=== PATIENT | male | born 1945 | race Caucasian/White ===

== ENCOUNTER 2017-11-20 12:20 | Outpatient (CLI) | payer MEDICARE ==
--- NOTE | 2017-11-20 13:30 | RAD ---
SKULL 3 VIEWS: HISTORY: Patient having MRI. Patient gives a history of possible metal in the eyes. FINDINGS/IMPRESSION: No radiopaque foreign body is seen. POS: [facility]
--- NOTE | 2017-11-20 16:20 | MRI ---
MRI THORACIC SPINE 11/20/17 HISTORY: Upper back pain for several months. Multiplanar and multisequence noncontrast enhanced MRI images of the thoracic spine obtained. 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 The spinal cord is unremarkable with no evidence of masses or lesions. There is a broad based disc bulge at the T6-7 level with minimal but not significant compression of t he thecal sac. The neural foramen are patent. T7-8: There is end plate degenerative changes seen in the inferior end plate of T7 and superior end plate of T8. There is disc space height loss seen. There is a broad based disc osteophyte complex sav trally compressing the thecal sac resulting in some mild to moderate central and lateral recess steno sis. The neural foramen are patent. No evidence of cord compression or edema seen. 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 POS: [facility]
== END 2017-11-20 12:21 | disposition home or self-care (01) ==
LOC: SCSMRI 12:20
PROVIDERS: ATTEND Family Medicine
DX: M51.14 Intervertebral disc disorders with radiculopathy, thoracic region (principal)
CPT/HCPCS: 70250; 72146

== ENCOUNTER 2022-04-23 10:39 | Outpatient (CLI) | payer MEDICARE, OTHER ==
[2022-04-23 13:03] LABS: #Basophils 0.1 10x3/uL (0.0-0.2); #Eosinphils 0.2 10x3/uL (0.0-0.5); #Monocytes 0.4 10x3/uL (0.0-1.1); #Neutrophils 3.1 10x3/uL (1.5-8.4); %Basophils 1.4 % (0.0-2.0); %Eosinophils 3.6 % (0.0-6.0); %Lymphocytes 31.2 % (18.0-47.0); %Monocytes 7.7 % (0.0-10.0); %Neutrophils 55.7 % (40.0-75.0); Hemoglobin 12.6 g/dL (13.5-17.5); Mean Corpuscular HGB CONC 31.8 g/dL (32.0-36.0); Mean Corpuscular Hemoglobin 27.5 pg (27.0-33.0); Mean Corpuscular Volume 86.3 fl (81.2-95.1); Mean Platelet Volume 10.6 fl (7.4-10.4); Platelet Count 209 10x3/uL (150-450); RBC Distribution Width 13.3 % (11.5-14.5); Red Blood Cell (RBC) Count 4.59 10x6/uL (4.32-5.72); White Blood Cell (WBC) Count 5.6 10x3/uL (3.5-10.5)
[2022-04-23 13:34] LABS: Anion Gap 15 mmol/L (10-20); BUN (Urea Nitrogen) 19 mg/dL (8.4-25.7); Calc. Creatinine Clearance 0 mL/min (70-130); Calcium 9.7 mg/dL (7.8-10.44); Carbon Dioxide 23 mmol/L (23-31); Chloride 108 mmol/L (98-107); Estimated GFR 70; Glucose 92 mg/dL (83-110); Potassium 4.2 mmol/L (3.5-5.1); Sodium 142 mmol/L (136-145)
[2022-04-23 14:13] LABS: Hemoglobin A1c 5.9 % (4.0-6.0)
== END 2022-04-23 10:40 | disposition home or self-care (01) ==
LOC: LABBT 10:39
PROVIDERS: ATTEND Surgery
DX: Z01.818 Encounter for other preprocedural examination (principal)
CPT/HCPCS: 80048; 83036; 85025; 93005; 93010

== ENCOUNTER 2022-04-23 10:45 | Inpatient (IN) | payer MEDICARE ==
[2022-04-26] MEDS ORDERED: Bupivacaine/Epinephrine 0.25% 30 ML VIAL ONE (06:38)
[2022-04-26] MEDS ORDERED: fentaNYL PF 100 MCG/2 ML SYRINGE ONE (06:43)
[2022-04-26 07:10] LABS: SARS-CoV-2 NAA Rapid Test Not Detected (NotDetected)
[2022-04-26] MEDS ORDERED: Midazolam HCl 2 mg/2 ml Vial ONE (07:19)
[2022-04-26] MEDS ORDERED: Fentanyl 100 MCG/2 ML VIAL ONE ×3 (07:19→10:46)
[2022-04-26] MEDS ORDERED: cefOXitin 2 GM VIAL ONE (07:20)
[2022-04-26] MEDS ORDERED: Bupivacaine PF 0.5% 30 ML VIAL ONE (07:20)
[2022-04-26] MEDS ORDERED: Sodium Chloride 0.9% 100 ML ONE (07:20)
[2022-04-26] MEDS ORDERED: PROPOFOL 200 MG/20 ML VIAL ONE (07:43)
[2022-04-26] MEDS ORDERED: Lidocaine 1% PF 5 ML VIAL ONE (07:43)
[2022-04-26] MEDS ORDERED: Dexamethasone 20 MG/5 ML VIAL ONE (07:43)
[2022-04-26] MEDS ORDERED: ePHEDrine 50 MG/ML VIAL ONE (07:43)
[2022-04-26] MEDS ORDERED: NEOSTIGMINE 3 MG/3 ML SYR 3 MG/3 ML SYRINGE ONE (07:43)
[2022-04-26] MEDS ORDERED: Rocuronium Bromide 10 MG/ML (10ML VIAL) ONE (07:43)
[2022-04-26] MEDS ORDERED: Glycopyrrolate 0.2 MG/ML 5 ML SYRINGE ONE ×2 (07:43)
[2022-04-26] MEDS ORDERED: Bupivacaine HCl 0.5%/Epinephrine 1:200,000/PF 30 ml Vial ONE (07:43)
[2022-04-26] MEDS ORDERED: Ondansetron PF 4 MG/2 ML Vial ONE (07:43)
[2022-04-26] MEDS ORDERED: Ipratropium/Albuterol 3 ML NEB NEB PRN (10:00)
[2022-04-26] MEDS ORDERED: Ondansetron PF 4 MG/2 ML Vial IVP PRN (10:00)
[2022-04-26] MEDS ORDERED: hydrALAZINE 20 MG/ML VIAL SLOW IVP PRN (10:00)
[2022-04-26] MEDS ORDERED: Promethazine HCl 25 MG/ML VIAL IM PRN ×2 (10:00→10:08)
[2022-04-26] MEDS ORDERED: Dextrose 5% in Water 1,000 ML IV PRN (10:00)
[2022-04-26] MEDS ORDERED: Dextrose 50% Abboject 50 ML SYRINGE SLOW IVP PRN (10:00)
[2022-04-26] MEDS ORDERED: diphenhydrAMINE 25 MG CAP PO PRN (10:08)
[2022-04-26] MEDS ORDERED: HYDROmorphone 2 MG/ML VIAL SLOW IVP PRN (10:08)
[2022-04-26] MEDS ORDERED: Ondansetron HCl/PF 4 MG/2 ML Vial IVP PRN (10:08)
[2022-04-26] MEDS ORDERED: FENTANYL 500 MCG/10 ML VIAL 2,000 MCG in Sodium Chloride 0.9% 60 ML IV PRN (10:08)
[2022-04-26] MEDS ORDERED: diphenhydrAMINE 50 MG/ML VIAL IVP PRN (10:08)
[2022-04-26] MEDS ORDERED: Zolpidem Tartrate 5 MG TAB PO PRN (10:08)
[2022-04-26] MEDS ORDERED: Naloxone HCl 0.4 mg/ml Vial IV PRN (10:08)
[2022-04-26] MEDS ORDERED: diphenhydrAMINE 50 MG/ML VIAL IM PRN (10:08)
[2022-04-26] MEDS ORDERED: PCA Communication Order-Pharmacy FS SCH (10:15)
[2022-04-26] MEDS ORDERED: HYDROmorphone 0.5 MG/0.5 ML SYRINGE ONE ×2 (11:20→11:48)
[2022-04-26] MEDS: D5 1/2 NS w/20 mEq KCL 1,000 ML IV SCH ×2 (13:21→23:16)
[2022-04-26 17:23] VITALS: BMI 28.9
[2022-04-26] MEDS: Famotidine/PF 20 mg/2ml Vial SLOW IVP SCH (20:55)
[2022-04-26] MEDS: Famotidine 20 MG TAB PO SCH (20:56)
[2022-04-27 05:55] LABS: #Lymphocytes 0.9 thou/uL (1.20-3.40); #Monocytes 0.8 thou/uL (0.11-0.59); %Basophils 0.1 % (0.0-1.0); %Eosinophils 0.1 % (0.0-10.0); %Lymphocytes 9.8 % (21.0-51.0); %Monocytes 9.3 % (0.0-10.0); %Neutrophils 80.8 % (42.0-75.0); Hemoglobin 11.8 g/dL (14.0-18.0); Mean Corpuscular HGB CONC 32.6 g/dL (32.0-36.0); Mean Corpuscular Hemoglobin 28.7 pg (27.0-31.0); Mean Corpuscular Volume 88.1 fl (78.0-98.0); Mean Platelet Volume 7.2 fL (7.4-10.4); Platelet Count 211 10x3/uL (130-400); RBC Distribution Width 12.8 % (11.5-14.5); Red Blood Cell (RBC) Count 4.13 mill/uL (4.70-6.10); White Blood Cell (WBC) Count 8.7 10x3/uL (4.8-10.8)
[2022-04-27 06:18] LABS: Anion Gap 11 mmol/L (10-20); BUN (Urea Nitrogen) 12 mg/dL (8.4-25.7); Calc. Creatinine Clearance 67 mL/min (70-130); Calcium 9.2 mg/dL (7.8-10.44); Carbon Dioxide 21 mmol/L (23-31); Chloride 103 mmol/L (98-107); Estimated GFR 73; Glucose 142 mg/dL (83-110); Potassium 4.3 mmol/L (3.5-5.1); Sodium 131 mmol/L (136-145)
[2022-04-27] MEDS ORDERED: traMADol HCl 50 MG TAB PO PRN ×2 (10:40→10:41)
[2022-04-27] MEDS: Famotidine 20 MG TAB PO SCH ×2 (11:08→19:34)
[2022-04-27] MEDS: Lisinopril/Hydrochlorothiazide 20/25 mg Tablet PO SCH (11:09)
[2022-04-27] MEDS: Famotidine/PF 20 mg/2ml Vial SLOW IVP SCH ×2 (11:09→20:33)
[2022-04-27] MEDS: HYDROcodone/Acetaminophen 10/325 mg Tablet PO PRN ×4 (11:18→22:49)
[2022-04-27] MEDS: D5 1/2 NS w/20 mEq KCL 1,000 ML IV SCH ×2 (11:18→22:51)
[2022-04-27] MEDS: Fentanyl 100 MCG/2 ML VIAL SLOW IVP PRN (12:57)
[2022-04-28] MEDS: Fentanyl 100 MCG/2 ML VIAL SLOW IVP PRN ×2 (04:17→07:24)
[2022-04-28] MEDS: Ondansetron PF 4 MG/2 ML Vial IVP PRN ×2 (04:25→10:35)
[2022-04-28] MEDS: Lisinopril/Hydrochlorothiazide 20/25 mg Tablet PO SCH (07:23)
[2022-04-28] MEDS: D5 1/2 NS w/20 mEq KCL 1,000 ML IV SCH (07:23)
[2022-04-28] MEDS: Famotidine/PF 20 mg/2ml Vial SLOW IVP SCH ×2 (07:24→19:41)
[2022-04-28] MEDS: Famotidine 20 MG TAB PO SCH ×2 (07:42→19:40)
[2022-04-28] MEDS ORDERED: Lactated Ringer's 500 ML IV SCH (09:30)
[2022-04-28] MEDS: Lactated Ringer's 1,000 ML IV SCH ×3 (09:41→23:26)
[2022-04-28 10:16] LABS: #Lymphocytes 0.7 thou/uL (1.20-3.40); #Monocytes 0.6 thou/uL (0.11-0.59); #Neutrophils 5.7 thou/uL (1.40-6.50); %Basophils 0.1 % (0.0-1.0); %Eosinophils 0.1 % (0.0-10.0); %Lymphocytes 9.3 % (21.0-51.0); %Monocytes 9.1 % (0.0-10.0); %Neutrophils 81.4 % (42.0-75.0); Hemoglobin 12.5 g/dL (14.0-18.0); Mean Corpuscular HGB CONC 32.6 g/dL (32.0-36.0); Mean Corpuscular Hemoglobin 28.5 pg (27.0-31.0); Mean Corpuscular Volume 87.2 fl (78.0-98.0); Mean Platelet Volume 7.4 fL (7.4-10.4); Platelet Count 231 10x3/uL (130-400)
[2022-04-28 10:36] LABS: Anion Gap 13 mmol/L (10-20); BUN (Urea Nitrogen) 13 mg/dL (8.4-25.7); Calc. Creatinine Clearance 64 mL/min (70-130); Carbon Dioxide 22 mmol/L (23-31); Chloride 100 mmol/L (98-107); Estimated GFR 69; Glucose 142 mg/dL (83-110); Phosphorus 2.3 mg/dL (2.3-4.7); Potassium 4.3 mmol/L (3.5-5.1); Sodium 131 mmol/L (136-145)
[2022-04-28] MEDS: HYDROcodone/Acetaminophen 10/325 mg Tablet PO PRN ×2 (15:41→19:40)
[2022-04-28] MEDS: Promethazine HCl 25 MG/ML VIAL IM PRN (19:40)
[2022-04-29] MEDS: HYDROcodone/Acetaminophen 10/325 mg Tablet PO PRN ×3 (02:45→19:46)
[2022-04-29] MEDS: Promethazine HCl 25 MG/ML VIAL IM PRN (02:51)
[2022-04-29] MEDS: Lisinopril/Hydrochlorothiazide 20/25 mg Tablet PO SCH (08:50)
[2022-04-29] MEDS: Famotidine/PF 20 mg/2ml Vial SLOW IVP SCH ×2 (08:50→20:42)
[2022-04-29] MEDS: Lactated Ringer's 1,000 ML IV SCH (08:50)
[2022-04-29] MEDS: Famotidine 20 MG TAB PO SCH ×2 (08:50→19:47)
[2022-04-29] MEDS: 1/2 NS w/KCL 20 mEq 1,000 ML IV SCH ×2 (12:13→20:03)
[2022-04-29] MEDS: Ondansetron PF 4 MG/2 ML Vial IVP PRN (19:47)
[2022-04-30] MEDS: 1/2 NS w/KCL 20 mEq 1,000 ML IV SCH ×3 (05:16→15:12)
[2022-04-30] MEDS: Lisinopril/Hydrochlorothiazide 20/25 mg Tablet PO SCH (08:43)
[2022-04-30] MEDS: Famotidine/PF 20 mg/2ml Vial SLOW IVP SCH ×2 (08:43→20:33)
[2022-04-30] MEDS: Famotidine 20 MG TAB PO SCH ×2 (08:43→20:33)
[2022-04-30] MEDS: HYDROcodone/Acetaminophen 10/325 mg Tablet PO PRN (14:00)
[2022-05-01] MEDS: 1/2 NS w/KCL 20 mEq 1,000 ML IV SCH ×2 (02:00→10:03)
[2022-05-01] MEDS: Ondansetron PF 4 MG/2 ML Vial IVP PRN (03:09)
[2022-05-01] MEDS: HYDROcodone/Acetaminophen 10/325 mg Tablet PO PRN ×2 (07:48→20:42)
[2022-05-01] MEDS: Lisinopril/Hydrochlorothiazide 20/25 mg Tablet PO SCH (09:50)
[2022-05-01] MEDS: Famotidine 20 MG TAB PO SCH ×2 (09:50→20:43)
[2022-05-01] MEDS: Famotidine/PF 20 mg/2ml Vial SLOW IVP SCH ×2 (09:50→22:57)
[2022-05-01] MEDS: Promethazine HCl 25 MG/ML VIAL IM PRN (16:30)
[2022-05-02] MEDS: HYDROcodone/Acetaminophen 10/325 mg Tablet PO PRN ×2 (09:08→13:36)
[2022-05-02] MEDS: Famotidine 20 MG TAB PO SCH (09:09)
[2022-05-02] MEDS: Lisinopril/Hydrochlorothiazide 20/25 mg Tablet PO SCH (09:09)
[2022-05-02] MEDS: Famotidine/PF 20 mg/2ml Vial SLOW IVP SCH (09:16)
[2022-05-02 12:05] VITALS: BP 135/83; TEMP 98.1
== END 2022-05-02 13:50 | disposition home or self-care (01) | DRG 330 ==
LOC: SURG A 04-26 05:28
PROVIDERS: ADMIT Surgery; ATTEND Surgery
PROC: 0DTG0ZZ Resection of Left Large Intestine, Open Approach (ICD-10-PCS; principal; 2022-04-26)
PROC: 0DJD4ZZ Inspection of Lower Intestinal Tract, Percutaneous Endoscopic Approach (ICD-10-PCS; 2022-04-26)
DX: C18.7 Malignant neoplasm of sigmoid colon (principal); K56.7 Ileus, unspecified; Z20.822 Contact with and (suspected) exposure to COVID-19; Z79.899 Other long term (current) drug therapy; Z79.82 Long term (current) use of aspirin; Z90.49 Acquired absence of other specified parts of digestive tract; Z82.3 Family history of stroke
CPT/HCPCS: 36415; 36416; 80048; 83735; 84100; 85025; 88309; C1713; C1889; J0694; J1100; J1170; J1650; J2250; J2405; J2550; J2704; J3010; J3480; J3490; J7120; S0020; S0028; U0002

== ENCOUNTER 2022-12-20 08:00 | Outpatient (CLI) | payer MEDICARE | END 2022-12-20 08:01 | disposition home or self-care (01) | LOC: PET 08:00 | PROVIDERS: ATTEND Internal Medicine Hematology & Oncology | DX: C16.2 Malignant neoplasm of body of stomach (principal); R59.0 Localized enlarged lymph nodes | CPT/HCPCS: 78815; A9552 ==

== ENCOUNTER 2022-12-28 13:18 | Outpatient (CLI) | payer MEDICARE ==
[2022-12-28 14:23] LABS: #Basophils 0.1 10x3/uL (0.0-0.2); #Eosinphils 0.1 10x3/uL (0.0-0.5); #Monocytes 0.4 10x3/uL (0.0-1.1); #Neutrophils 5.3 10x3/uL (1.5-8.4); %Basophils 0.7 % (0.0-2.0); %Lymphocytes 15.5 % (18.0-47.0); %Monocytes 6.3 % (0.0-10.0); %Neutrophils 75.4 % (40.0-75.0); Hematocrit 35.1 % (38.8-50.0); Hemoglobin 10.1 g/dL (13.5-17.5); Mean Corpuscular HGB CONC 28.8 g/dL (32.0-36.0); Mean Corpuscular Hemoglobin 24.5 pg (27.0-33.0); Mean Platelet Volume 9.2 fl (7.4-10.4); Platelet Count 222 10x3/uL (150-450); RBC Distribution Width 24.2 % (11.5-14.5); Red Blood Cell (RBC) Count 4.13 10x6/uL (4.32-5.72)
[2022-12-28 14:32] LABS: Anion Gap 14 mmol/L (10-20); BUN (Urea Nitrogen) 15 mg/dL (8.4-25.7); Calc. Creatinine Clearance 0 mL/min (70-130); Calcium 9.6 mg/dL (7.8-10.44); Carbon Dioxide 24 mmol/L (23-31); Chloride 106 mmol/L (98-107); Estimated GFR 72; Glucose 129 mg/dL (83-110); Potassium 4.3 mmol/L (3.5-5.1); Sodium 140 mmol/L (136-145)
== END 2022-12-28 13:19 | disposition home or self-care (01) ==
LOC: LABBT 13:18
PROVIDERS: ATTEND Surgery
DX: Z01.812 Encounter for preprocedural laboratory examination (principal); C16.2 Malignant neoplasm of body of stomach
CPT/HCPCS: 80048; 85025

== ENCOUNTER 2022-12-31 09:55 | Day surgery (SDC) | payer MEDICARE ==
[2022-12-28 11:17] VITALS: BMI 26.6
[2022-12-31] MEDS ORDERED: EPINEPHrine 1 MG/ML VIAL ONE (11:25)
[2022-12-31] MEDS ORDERED: Bupivacaine 0.25% HCL 30 ML VIAL ONE (11:25)
[2022-12-31] MEDS ORDERED: fentaNYL PF 100 MCG/2 ML SYRINGE ONE (11:50)
[2022-12-31] MEDS ORDERED: Sodium Chloride 0.9% 100 ML ONE (12:01)
[2022-12-31] MEDS ORDERED: CEFAZOLIN 2 GM VIAL ONE (12:01)
[2022-12-31] MEDS ORDERED: Propofol 500 MG/50 ML VIAL ONE (12:02)
[2022-12-31] MEDS ORDERED: Lidocaine 2% PF 5 ML VIAL ONE (12:28)
== END 2022-12-31 13:55 | disposition home or self-care (01) ==
LOC: SDC 09:55
PROVIDERS: ATTEND Surgery
PROC: 0JH63WZ Insertion of Totally Implantable Vascular Access Device into Chest Subcutaneous Tissue and Fascia, Percutaneous Approach (ICD-10-PCS; principal; 2022-12-31)
DX: C16.2 Malignant neoplasm of body of stomach (principal); I10 Essential (primary) hypertension; Z86.010 Personal history of colon polyps
CPT/HCPCS: 71045; C1788; J0171; J1642; J2001; J2704; J3490; S0020

== ENCOUNTER 2023-01-01 10:03 | Inpatient (IN) | payer MEDICARE ==
[2023-01-01 10:59] LABS: #Eosinphils 0.1 thou/uL (0.0-0.7); #Monocytes 0.5 thou/uL (0.11-0.59); #Neutrophils 8.2 thou/uL (1.40-6.50); %Basophils 0.4 % (0.0-1.0); %Eosinophils 0.8 % (0.0-10.0); %Lymphocytes 8.1 % (21.0-51.0); %Monocytes 5.4 % (0.0-10.0); %Neutrophils 85.1 % (42.0-75.0); Hematocrit 29.8 % (42.0-52.0); Hemoglobin 8.5 g/dL (14.0-18.0); Mean Corpuscular HGB CONC 28.5 g/dL (32.0-36.0); Mean Corpuscular Hemoglobin 25.5 pg (27.0-31.0); Mean Corpuscular Volume 89.5 fl (78.0-98.0); Platelet Count 179 10x3/uL (130-400); Red Blood Cell (RBC) Count 3.33 mill/uL (4.70-6.10); White Blood Cell (WBC) Count 9.7 10x3/uL (4.8-10.8)
[2023-01-01 11:30] LABS: ALT (SGPT) 7 U/L (8-55); AST (SGOT) 10 U/L (5-34); Albumin 3.4 g/dL (3.4-4.8); Alkaline Phosphatase 57 U/L (40-110); Anion Gap 13 mmol/L (10-20); BUN (Urea Nitrogen) 17 mg/dL (8.4-25.7); Bilirubin, Total 0.2 mg/dL (0.2-1.2); Calc. Creatinine Clearance 0 mL/min (70-130); Calcium 8.8 mg/dL (7.8-10.44); Carbon Dioxide 21 mmol/L (23-31); Chloride 110 mmol/L (98-107); Estimated GFR 77; Globulin 1.8 g/dL (2.4-3.5); Glucose 120 mg/dL (83-110); Lipase Less than 4 U/L (8-78); Protein, Total 5.2 g/dL (5.8-8.1); Sodium 140 mmol/L (136-145)
[2023-01-01 11:32] LABS: Anisocytosis MODERATE=16-30 cells HPF (0-5); CellaVision Operator ID LAB.GE; Elliptocytes SLIGHT = 2-5 cells HPF (0-1); Hypochromia SLIGHT = 6-15 cells HPF (0-5); Ovalocytes SLIGHT = 2-5 cells HPF (0-1); Platelet Adequacy Comment Platelets Normal; Polychromasia SLIGHT = 2-3 cells HPF (0-2)
[2023-01-01 11:34] LABS: Troponin I Less than 0.010 ng/mL (< 0.028)
[2023-01-01] MEDS ORDERED: Iopamidol-370 76% 500 ML MDV (1 ML CHARGE) ONE (11:39)
[2023-01-01 12:38] LABS: Bacteria/HPF None Seen HPF (None Seen); Bilirubin Negative (Negative); Blood, Urine Negative (Negative); CAUTI Indications for Culture Alt mental st,lethar; Clarity Clear (Clear); Glucose, Urine (Dipstick) Normal (Negative); Ketone, Urine Negative (Negative); Leukocyte Negative Leu/uL (Negative); Nitrite Negative (Negative); Protein, Urine (Dipstick) Negative (Neg-Trace); RBC/HPF 0-3 HPF (0-3); Squamous Epithelial None Seen HPF (0-3); Urobilinogen Normal mg/dL (Less than 2); WBC/HPF 0-3 HPF (0-3); pH, Urine 6.5 (5.0-9.0)
[2023-01-01 12:41] LABS: Urine Culture Reflex No No
[2023-01-01 14:06] LABS: Lactic Acid 0.7 mmol/L (0.5-2.2)
[2023-01-01] MEDS ORDERED: Ondansetron PF 4 MG/2 ML Vial IVP PRN (14:22)
[2023-01-01] MEDS ORDERED: Ondansetron ODT 4 MG TAB PO PRN (14:22)
[2023-01-01] MEDS ORDERED: Acetaminophen 325 MG TAB PO PRN (14:22)
[2023-01-01] MEDS ORDERED: Electrolyte Replacement Protocol 1 EACH FS SCH (14:30)
[2023-01-01] MEDS: Sodium Chloride 0.9% 1,000 ML IV SCH (16:41)
[2023-01-01 17:03] LABS: Magnesium 1.8 mg/dL (1.6-2.6)
[2023-01-01] MEDS ORDERED: Rosuvastatin 10 MG TAB PO SCH (21:00)
[2023-01-01] MEDS ORDERED: Magnesium 2 GM/50 ML(in water) 2 GM in Premix 1 BAG IVPB SCH (21:15)
[2023-01-02] MEDS: Sodium Chloride 0.9% 1,000 ML IV SCH ×4 (01:11→16:41)
[2023-01-02 04:57] LABS: #Eosinphils 0.1 thou/uL (0.0-0.7); #Monocytes 0.4 thou/uL (0.11-0.59); #Neutrophils 3.3 thou/uL (1.40-6.50); %Basophils 0.8 % (0.0-1.0); %Eosinophils 2.4 % (0.0-10.0); %Lymphocytes 21.2 % (21.0-51.0); %Monocytes 7.9 % (0.0-10.0); %Neutrophils 67.3 % (42.0-75.0); Hematocrit 24.4 % (42.0-52.0); Hemoglobin 6.9 g/dL (14.0-18.0); Mean Corpuscular HGB CONC 28.3 g/dL (32.0-36.0); Mean Corpuscular Hemoglobin 24.6 pg (27.0-31.0); Mean Corpuscular Volume 87.1 fl (78.0-98.0); Mean Platelet Volume 10.3 fL (7.4-10.4); Platelet Count 154 10x3/uL (130-400); RBC Distribution Width 23.1 % (11.5-14.5); White Blood Cell (WBC) Count 4.9 10x3/uL (4.8-10.8)
[2023-01-02 08:56] LABS: Anion Gap 9 mmol/L (10-20); BUN (Urea Nitrogen) 20 mg/dL (8.4-25.7); Calc. Creatinine Clearance 76 mL/min (70-130); Calcium 8.8 mg/dL (7.8-10.44); Carbon Dioxide 23 mmol/L (23-31); Chloride 111 mmol/L (98-107); Estimated GFR 89; Glucose 104 mg/dL (83-110); Magnesium 2.1 mg/dL (1.6-2.6); Potassium 4.1 mmol/L (3.5-5.1); Sodium 139 mmol/L (136-145)
[2023-01-02 17:55] VITALS: BMI 261446.3
[2023-01-02 18:10] VITALS: BP 177/86
[2023-01-02 18:10] LABS: Hematocrit 28.5 % (42.0-52.0); Hemoglobin 8.6 g/dL (14.0-18.0); Platelet Count 169 10x3/uL (130-400)
[2023-01-02 18:11] VITALS: TEMP 98.2
== END 2023-01-02 19:17 | disposition home or self-care (01) | DRG 641 ==
LOC: ERS 10:03 → ERHOLD 13:09 → 2SW 15:26 → OBSVTOIN 01-02 16:11
PROVIDERS: ADMIT Internal Medicine; ATTEND Internal Medicine
PROC: 30233N1 Transfusion of Nonautologous Red Blood Cells into Peripheral Vein, Percutaneous Approach (ICD-10-PCS; principal; 2023-01-02)
DX: E86.9 Volume depletion, unspecified (principal); C18.9 Malignant neoplasm of colon, unspecified; C16.9 Malignant neoplasm of stomach, unspecified; I10 Essential (primary) hypertension; I25.10 Atherosclerotic heart disease of native coronary artery without angina pectoris; K31.89 Other diseases of stomach and duodenum; D63.8 Anemia in other chronic diseases classified elsewhere; Z95.5 Presence of coronary angioplasty implant and graft; Z90.49 Acquired absence of other specified parts of digestive tract; Z98.890 Other specified postprocedural states; Z79.899 Other long term (current) drug therapy; Z82.49 Family history of ischemic heart disease and other diseases of the circulatory system
CPT/HCPCS: 36415; 36430; 70450; 71045; 71275; 80048; 80053; 81001; 83605; 83690; 83735; 83880; 84484; 85025; 86850; 86900; 86901; 87040; 93005; 96360; 96365; C1788; G0378; J0171; J1642; J2001; J2704; J3475; J3490; J7050; P9016; Q9967; S0020

== ENCOUNTER 2023-04-11 12:30 | Outpatient (CLI) | payer MEDICARE | END 2023-04-11 12:31 | disposition home or self-care (01) | LOC: PET 12:30 | PROVIDERS: ATTEND Internal Medicine Hematology & Oncology | DX: C16.2 Malignant neoplasm of body of stomach (principal); C78.7 Secondary malignant neoplasm of liver and intrahepatic bile duct; C77.2 Secondary and unspecified malignant neoplasm of intra-abdominal lymph nodes; K31.89 Other diseases of stomach and duodenum | CPT/HCPCS: 78815; A9552 ==

== ENCOUNTER 2023-09-16 08:45 | Outpatient (CLI) | payer MEDICARE | END 2023-09-16 08:46 | disposition home or self-care (01) | LOC: PET 08:45 | PROVIDERS: ATTEND Radiology Radiation Oncology | DX: C16.8 Malignant neoplasm of overlapping sites of stomach (principal); R91.1 Solitary pulmonary nodule | CPT/HCPCS: 78815; A9552 ==

== ENCOUNTER 2023-10-18 11:47 | Emergency (ER) | payer MEDICARE ==
[2023-10-18] MEDS ORDERED: Pantoprazole 40 MG VIAL ONE (13:30)
[2023-10-18 15:09] LABS: #Basophils Less than 0.03 10x3/uL (0.0-0.2); %Basophils 0.6 % (0.0-1.0); %Eosinophils 1.5 % (0.0-10.0); %Monocytes 8.7 % (0.0-10.0); %Neutrophils 60.9 % (42.0-75.0); Hematocrit 23.2 % (42.0-52.0); Hemoglobin 6.6 g/dL (14.0-18.0); Mean Corpuscular HGB CONC 28.4 g/dL (32.0-36.0); Mean Corpuscular Hemoglobin 23.9 pg (27.0-31.0); Mean Corpuscular Volume 84.1 fL (78.0-98.0); Mean Platelet Volume 10.9 fL (7.4-10.4); Platelet Count 131 10x3/uL (130-400); RBC Distribution Width 15.4 % (11.5-14.5); Red Blood Cell (RBC) Count 2.76 mill/uL (4.70-6.10)
[2023-10-18 15:23] LABS: Prothrombin Time 12.7 sec (12.0-14.7)
[2023-10-18 15:25] LABS: ALT (SGPT) 11 U/L (8-55); AST (SGOT) 19 U/L (5-34); Albumin 4.2 g/dL (3.4-4.8); Alkaline Phosphatase 83 U/L (40-110); Anion Gap 14 mmol/L (10-20); BUN (Urea Nitrogen) 15 mg/dL (8.4-25.7); Bilirubin, Total 0.3 mg/dL (0.2-1.2); Calc. Creatinine Clearance 0 mL/min (70-130); Calcium 10.1 mg/dL (7.8-10.44); Carbon Dioxide 21 mmol/L (23-31); Chloride 109 mmol/L (98-107); Estimated GFR 82; Globulin 2.9 g/dL (2.4-3.5); Glucose 107 mg/dL (83-110); Potassium 4.4 mmol/L (3.5-5.1); Protein, Total 7.1 g/dL (5.8-8.1); Sodium 140 mmol/L (136-145)
[2023-10-18 16:06] LABS: Elliptocytes SLIGHT = 2-5 cells HPF (0-1); Hypochromia SLIGHT = 6-15 cells HPF (0-5); Platelet Adequacy Comment Platelets Normal; Polychromasia SLIGHT = 2-3 cells HPF (0-2); Schistocytes SLIGHT = 2-5 cells HPF (0-1); Tear Drops SLIGHT = 2-5 cells HPF (0-1)
== END 2023-10-18 18:05 | disposition home or self-care (01) ==
LOC: ERS 11:47
DX: D64.9 Anemia, unspecified (principal); I10 Essential (primary) hypertension; I25.10 Atherosclerotic heart disease of native coronary artery without angina pectoris; Z85.028 Personal history of other malignant neoplasm of stomach
CPT/HCPCS: 36430; 74176; 80053; 85025; 85610; 86850; 86900; 86901; 86920; 96374; 99284; J2470; P9016; 36415; 82274

== ENCOUNTER 2024-02-10 08:45 | Outpatient (CLI) | payer MEDICARE | END 2024-02-10 08:46 | disposition home or self-care (01) | LOC: PET 08:45 | PROVIDERS: ATTEND Internal Medicine Hematology & Oncology | DX: C18.7 Malignant neoplasm of sigmoid colon (principal); C16.2 Malignant neoplasm of body of stomach; D50.0 Iron deficiency anemia secondary to blood loss (chronic); D70.8 Other neutropenia | CPT/HCPCS: 78815; A9552 ==